=== PATIENT | male | born 1965 | race Caucasian/White ===

== ENCOUNTER 2016-05-14 18:45 | Emergency (ER) | payer SELFPAY ==
--- NOTE | 2016-05-14 19:09 | ER Document Report ---
ED Medical Screen (RME) - General Stated Complaint: TOOTHACHE Time seen by provider: 19:07 Mode of Arrival: Ambulatory Information source: Patient Notes: 51-year-old male presents to ED for upper left toothache in the back. He says it's been hurting for several days cannot go to the dentist told he gets his income taxes. I have greeted and performed a rapid initial assessment of this patient. A comprehensive ED assessment and evaluation of the patient, analysis of test results and completion of medical decision making process will be conducted by an additional ED providers.
[2016-05-14 19:10] VITALS: BP 148/86
[2016-05-14] MEDS ORDERED: HYDROCODONE/ACETAMINOPHEN 5-325 MG 6 TAB/DSPK PO PRN (20:09)
--- NOTE | 2016-05-14 20:09 | ER Document Report ---
ED General - General Chief Complaint: Toothache Stated Complaint: TOOTHACHE Mode of Arrival: Ambulatory Notes: Patient is a 51-year-old male who presents for dental pain. States has cavities in virtually "all of my remaining teeth" and that the pain has gotten progressively worse on the left side of his face particularly over tooth #20. He has scheduled an appointment with a dentist on Tuesday but states the pain got to a point today where he couldn't take it anymore. Does describe as a severe, constant, throbbing pain. Nothing improves or worsens that pain. Denies any associated difficulty breathing or swallowing. No fever or other constitutional symptoms. Denies history of similar symptoms in the past. TRAVEL OUTSIDE OF THE [place] IN LAST 30 DAYS: No - Related Data Allergies/Adverse Reactions: No Known Allergies Allergy (Verified 05/14/16 19:08) Past Medical History - General Information source: Patient - Social History Smoking Status: Current Every Day Smoker Chew tobacco use (# tins/day): No Frequency of alcohol use: None Drug Abuse: None Lives with: Spouse/Significant other Family History: Reviewed & Not Pertinent Patient has suicidal ideation: No Patient has homicidal ideation: No Renal/ Medical History: Denies: Hx Peritoneal Dialysis Review of Systems - Review of Systems Notes: Constitutional: Negative for fever. Cardiovascular: Negative for chest pain. Respiratory: Negative for shortness of breath. Gastrointestinal: Negative for vomiting Musculoskeletal: Negative for back pain. Skin: Negative for rash. Neurological: Negative for weakness or numbness. 10 point ROS negative except as marked above and in HPI. Physical Exam - Vital signs Vitals: Temp Pulse Resp BP Pulse Ox 97.5 F 94 20 148/86 H 98 05/14/16 19:01 05/14/16 19:01 05/14/16 19:01 05/14/16 19:01 05/14/16 19:01 Interpretation: Hypertensive Notes: PHYSICAL EXAMINATION: GENERAL: Well-appearing, well-nourished and in no acute distress. HEAD: Atraumatic, normocephalic. EYES: sclera anicteric, conjunctiva are normal. ENT: Moist mucous membranes. Diffuse dental caries. Slight lower left facial swelling. Oropharynx widely patent. NECK: Normal range of motion LUNGS: Normal work of breathing HEART: 2+ radial pulses bilaterally EXTREMITIES: no pitting or edema. No cyanosis. NEUROLOGICAL: No focal neurological deficits. Moves all extremities spontaneously and on command. PSYCH: Normal mood, normal affect. SKIN: Warm, Dry, normal turgor, no rashes or lesions noted. Course - Re-evaluation Re-evalutation: 05/14/16 20:06 Presentation is most consistent with likely an infected tooth. Airway is patent. Vitals within normal limits. Patient is able swallow without any difficulty. There is no significant facial swelling. Patient will be started on antibiotics and a limited number of pain medications. I've instructed to follow-up with dentistry as earliest ability for definitive management. Return precautions and follow-up recommendations have been discussed at length. - Vital Signs Vital signs: Temp Pulse Resp BP Pulse Ox 97.9 F 94 18 148/86 H 98 05/14/16 21:18 05/14/16 21:18 05/14/16 21:18 05/14/16 21:18 05/14/16 21:18 Discharge - Discharge Clinical Impression: Pain, dental Condition: Good Disposition: HOME, SELF-CARE Additional Instructions: You have been seen for dental pain. It is very important that you follow-up with a dentist for definitive care. Please return if you develop fever greater than 101, swelling in your face, vomiting, difficulty breathing or swallowing, or any other symptoms that are concerning to you. For pain you should take ibuprofen 600 mg every 6 hours as needed. Prescriptions: Amox Tr/Potassium Clavulanate [Augmentin 875-125 Tablet] 1 tab PO BID 10 Days Referrals: ILEANA TIRADO MD [Primary Care Provider] - Follow up as needed
[2016-05-14] MEDS ORDERED: AMOXICILLIN TR/POT CLAVULANATE 500-125 MG TAB PO ONE (20:27)
== END 2016-05-14 21:22 | disposition home or self-care (01) ==
LOC: ER 18:45 → EDBD 18:45 → ER 21:22
DX: K08.9 Disorder of teeth and supporting structures, unspecified (principal); F17.200 Nicotine dependence, unspecified, uncomplicated
CPT/HCPCS: 99282